=== PATIENT | female | born 1945 | race Caucasian/White ===

== ENCOUNTER 2017-02-20 13:28 | Emergency (ER) | payer MEDICARE, OTHER ==
[2017-02-20 13:12] LABS: BASOPHILS 0.3 %; BASOPHILS ABSOLUTE 0.03 10/3/uL (0.0-0.16); ER CBC TAT 0 Hrs 03 Mins; HEMATOCRIT 34.3 % (36.0-48.0); HEMOGLOBIN 11.5 g/dL (12.0-16.0); IMMATURE GRANULOCYTES 0.4 %; IMMATURE GRANULOCYTES ABSOLUTE 0.04 10/3/uL (0.0-0.11); LYMPHOCYTES 37.3 %; LYMPHOCYTES ABSOLUTE 3.66 10/3/uL (0.67-4.30); MEAN CORPUS HGB CONC 33.5 g/dL (32.0-36.0); MEAN CORPUSCULAR HEMOGLOB 29.2 pg (26.0-34.0); MEAN CORPUSCULAR VOLUME 87.1 fL (80-100); MEAN PLATELET VOLUME 8.9 fL (9.2-13.0); MONOCYTES 4.8 %; MONOCYTES ABSOLUTE 0.47 10/3/uL (0.21-1.20); NEUTROPHILS 56.2 %; NEUTROPHILS ABSOLUTE 5.51 10/3/uL (2.02-8.40); RED CELL COUNT 3.94 10/6/uL (4.0-5.6); WHITE BLOOD CELLS 9.8 10/3/uL (4.5-10.5)
[2017-02-20 13:13] LABS: MANUAL DIFF NO %; PLATELET COUNT 308 10/3/uL (150-400)
[~2017-02-20 13:28] MED LIST: AMARYL1 MG PO; AMARYL2 PO; ASAB PO; ATV.5 PO; ATV1 PO; BENICAR HCT1 TAB PO; BLACK COHOSH; BYSTOLIC10 MG PO; BYSTOLIC5 MG PO; CARASPUDL PO; COREG12 PO; COREG25 PO; COVARYX HS PO; COZ50 PO; DEMA20 PO; DEXLANT PO; DIL2TAB PO; ESTRACE1 MG PO; ESTRATEST PO; FIORICET OR; FIORICET PO; FIORINALC PO; FISH OIL1200 MG PO; GLUCPH PO; HYDROCODONE APAP PO; HYDROCODONE/ACET; HYZAAR1 TAB PO; INSULIN NOVOLOG; KAPIDEX60 MG PO; KLOR-CON 1010 MEQ PO; LEVAQUIN750 MG PO; LEVEMIR SC; LINZESS 145 M145 MCG PO; LOP50 PO; LOVAZA1 GM PO; MEDROXYPR AC2.5 MG OR; NEO-SYNEPHRINE15 ML NAS; NEXIUM40 PO; NORCO1 TAB PO; ONGLYZA5 MG PO; OXYCON80 PO; PARAFON FORTE500 MG OR; PR25 PO; PRAVACHOL40 MG PO; PRAVACHOL80 MG PO; PROVERA 2.5 MG2.5 MG OR; PROVERA 2.5 MG2.5 MG PO; PROVERA2.5 MG OR; PROVERA5 MG OR; REFRESH TEAR0.5 % OPH; RESTORIL30 MG PO; SEROQUEL25 PO; SPIRIVA INH; STERAPRED DS10 MG PO; SUCR PO; SYN.05 PO; TEGRETOL100 MG PO; TOPAMAX25 PO; VASCEPA 1 GM PO; VENTOLIN HFA INH; VITC500 PO; ZANAFLEX 4 MG TA4 MG PO; ZANTAC300 MG PO; ZETIA PO; ZOFRAN4 PO; ZOL100 PO
[2017-02-20 13:30] LABS: ALBUMIN 3.6 G/DL (3.5-5.0); ALKALINE PHOSPHATASE 126 U/L (45-117); BUN (BLOOD UREA NITROGEN) 11 MG/DL (6-23); CALCIUM, SERUM 9.3 MG/DL (8.5-10.4); CHLORIDE, SERUM 96 MMOL/L (96-112); CO2 (CARBON DIOXIDE) 31 MMOL/L (24-34); CREATININE 0.78 MG/DL (0.55-1.02); GFR AFRICAN AMERICAN 90 ML/MIN (>=60); GFR NON AFRICAN AMERICAN 78 ML/MIN (>=60); GLOBULIN 3.7 G/DL (2.5-4.1); GLUCOSE, SERUM 67 MG/DL (60-99); POTASSIUM, SERUM 4.2 MMOL/L (3.5-5.3); SGOT(AST) 17 U/L (5-40); SGPT(ALT) 24 U/L (5-65); SODIUM, SERUM 135 MMOL/L (135-148); TOTAL BILIRUBIN 0.2 MG/DL (0-1.2); TOTAL PROTEIN 7.3 G/DL (6.0-8.5); TROPONIN I <0.02 NG/ML (<0.05)
[2017-02-20 13:39] LABS: ASCORBIC ACID (UR NOT ORDER) NEG (NEG); BILIRUBIN, URINE NEGATIVE (NEG); ER URINALYSIS TAT 0 Hrs 11 Mins; KETONE, URINE NEGATIVE (NEG); LEUKOCYTE ESTERASE(NOT OR TRACE (NEG); NITRITE (URINE) NEG (NEG); WBC (NOT ORDERED) (RFLEX) 6 (0-5)
== END 2017-02-20 15:38 | disposition home or self-care (01) ==
LOC: ER 13:28
PROVIDERS: Physician Assistant
DX: M54.6 Pain in thoracic spine (principal); I10 Essential (primary) hypertension; E11.9 Type 2 diabetes mellitus without complications; Z85.528 Personal history of other malignant neoplasm of kidney; Z88.5 Allergy status to narcotic agent; Z88.1 Allergy status to other antibiotic agents; Z88.8 Allergy status to other drugs, medicaments and biological substances; Z79.82 Long term (current) use of aspirin; Z79.2 Long term (current) use of antibiotics; Z79.899 Other long term (current) drug therapy
CPT/HCPCS: 72072; 72100; 74176; 80053; 81001; 83690; 84484; 85025; 99284